=== PATIENT | female | born 1995 ===

== ENCOUNTER 2025-02-21 07:57 | Emergency (ER) | payer SELFPAY ==
[2025-02-21] MEDS ORDERED: Sodium Chloride 0.9% 10 ML Syringe FLUSH PRN (08:13)
[2025-02-21 08:28] LABS: BASOPHILS PERCENT AUTO 0.8 % (0.0-1.0); EOSINOPHILS PERCENT AUTO 4.2 % (1.0-3.0); LYMPHOCYTES PERCENT AUTO 35.4 % (20.5-50.1); MONOCYTES PERCENT AUTO 7.4 % (2-8); NEUTROPHILS PERCENT AUTO 52.2 % (42.2-75.2); PLATELET COUNT,PLT 410 10^3/uL (150-450); RED BLOOD CELL COUNT 5.21 10^6/uL (4.2-5.4); WHITE BLOOD CELL COUNT,WBC 10.4 10^3/uL (5.0-10.0)
[2025-02-21] MEDS: fentaNYL 100 MCG/2 ML SDV IVPUSH ONE (08:44)
[2025-02-21 08:48] LABS: A/G RATIO 0.8; ALANINE AMINOTRANSFERASE,ALT 41 U/L (14-59); ASPARTATE AMNIOTRANSFERASE,AST 19 U/L (15-37); BILIRUBIN TOTAL 0.2 mg/dL (0.2-1.0); BLOOD UREA NITROGEN,BUN 14 mg/dL (7-18); CARBON DIOXIDE,CO2 26 mmol/L (21-32); CHLORIDE,CL 101 mmol/L (98-107); CREATININE 0.80 mg/dL (0.55-1.02); EST CRCL DRUG DOSING (CG) 95.38 mL/min; GLUCOSE RANDOM 107 mg/dL (70-99); POTASSIUM,K 3.9 mmol/L (3.5-5.1); PROTEIN TOTAL,TP 8.6 g/dL (6.4-8.2); SODIUM,NA 137 mmol/L (136-145)
[2025-02-21 08:49] LABS: ESTIMATED GFR 101 mL/min (>=60)
[2025-02-21] MEDS: Iopamidol 612 MG/ML 100 ML Bottle IVPUSH ONE (08:51)
[2025-02-21] MEDS: Ketorolac 30 MG/ML SDV IVPUSH ONE (08:58)
[2025-02-21] MEDS: Ondansetron 4 MG/2 ML SDV IVPUSH ONE (09:42)
== END 2025-02-21 11:29 | disposition home or self-care (01) ==
LOC: DL.ED 07:57
DX: H66.001 Acute suppurative otitis media without spontaneous rupture of ear drum, right ear (principal); Z91.040 Latex allergy status
CPT/HCPCS: 36415; 70487; 80053; 84703; 85025; 86140; 96374; 96375; 99284; J1885; J2270; J2405; J3010; Q9967